=== PATIENT | male | born 1995 | race African-American/Black ===

== ENCOUNTER 2020-11-08 13:20 | Emergency (ER) | payer MEDICAID ==
[~2020-11-08] VITALS: Ht 180.3 cm; Wt 73.0 kg
[2020-11-08 13:26] VITALS: BP 120/85
[2020-11-08 16:17] LABS: CLARITY URINE CLEAR (CLEAR); COLOR URINE YELLOW (YELLOW); KETONES URINE TRACE (NEGATIVE); LEUKOCYTE ESTERASE URINE NEGATIVE (NEGATIVE); NITRITE URINE NEGATIVE (NEGATIVE); OCCULT BLOOD URINE NEGATIVE (NEGATIVE); PH URINE 5.5 (4.5-8.0); PROTEIN URINE 1+ (NEGATIVE); SPECIFIC GRAVITY URINE 1.018 (1.005-1.030)
[2020-11-08] MEDS ORDERED: IBUP-2029 MT (16:32)
[2020-11-08] MEDS ORDERED: TOPUD PO (16:32)
== END 2020-11-08 16:51 | disposition home or self-care (01) ==
LOC: ER 13:20
DX: N43.2 Other hydrocele (principal)
CPT/HCPCS: 76870; 81003; 93976; 99284

== ENCOUNTER 2022-08-25 09:59 | Emergency (ER) | payer MEDICAID ==
[~2022-08-25] VITALS: Ht 182.9 cm; Wt 75.0 kg
[~2022-08-25 09:59] MED LIST: IBUP-2029 MT; TOPUD PO
[2022-08-25 10:10] VITALS: BP 114/52
== END 2022-08-25 14:48 | disposition left against medical advice (07) ==
LOC: ER 09:59
DX: Z53.21 Procedure and treatment not carried out due to patient leaving prior to being seen by health care provider (principal)

== ENCOUNTER 2024-11-06 09:59 | Emergency (ER) | payer MEDICAID ==
[~2024-11-06] VITALS: Ht 175.3 cm; Wt 78.0 kg
[2024-11-06 10:03] VITALS: O2SAT 100
[2024-11-06 10:47] LABS: BASOPHILS % 0.9 % (0.0-2.0); EOSINOPHILS % 2.3 % (0.0-5.0); HEMATOCRIT. 43.5 % (42.0-52.0); HEMOGLOBIN. 14.6 g/dL (14.0-18.0); LYMPHOCYTES % 44.3 % (20.0-50.0); MEAN CORPUSCULAR HEMOGLOBIN 31.3 pg (28.0-32.0); MEAN CORPUSCULAR HGB CONC 33.6 g/dL (31.0-37.0); MEAN CORPUSCULAR VOLUME 93.1 fL (80.0-94.0); MEAN PLATELET VOLUME 9.1 fl (7.4-10.4); MONOCYTES % 11.2 % (2.0-8.0); NEUTROPHILS % 41.3 % (40.0-76.0); PLATELET 247 x1000/uL (130-400); RED BLOOD CELL COUNT 4.68 mill/uL (4.7-6.1); RED CELL DISTRIBUTION WIDTH 13.2 % (11.6-14.6); WHITE BLOOD COUNT 3.1 x1000/uL (4.5-11.0)
[2024-11-06 10:57] LABS: PROTHROMBIN TIME 10.8 sec (9.6-11.0)
[2024-11-06 11:02] LABS: CHLORIDE 106 mEq/L (98-107); POTASSIUM 3.6 mEq/L (3.5-5.1); SODIUM 137 mEq/L (136-145)
[2024-11-06 11:03] LABS: CALCIUM 9.2 mg/dL (8.7-10.4); CARBON DIOXIDE 24 mEq/L (21-32)
[2024-11-06 11:08] LABS: CREATININE 0.9 mg/dL (0.6-1.3); GLUCOSE 97 mg/dL (70-105); UREA NITROGEN BLOOD 9 mg/dL (9-23)
[2024-11-06 11:10] LABS: TROPONIN I HIGH SENSITIVITY < 4 ng/L (3.0-53)
[2024-11-06 11:43] VITALS: BP 126/83; PULSE 62; RESP 16; TEMP 37; O2SAT 100
== END 2024-11-06 11:43 | disposition home or self-care (01) ==
LOC: ER 09:59
DX: R07.89 Other chest pain (principal)
CPT/HCPCS: 36415; 71045; 80048; 84484; 85025; 93005; 99285